=== PATIENT | female | born 1975 | race Caucasian/White ===

== ENCOUNTER → 2018-09-12 21:56 | Outpatient (CLI) | payer BC | END | disposition home or self-care (01) | LOC: D.MAMMO 13:30 | DX: Z12.31 Encounter for screening mammogram for malignant neoplasm of breast (principal) ==

== ENCOUNTER 2020-06-23 06:25 | Day surgery (SDC) | payer BC ==
[2020-06-20 11:39] LABS: BASOPHILS 0.3 % (0-2); EOSINOPHILS 3.2 % (0-7); HEMATOCRIT 46.8 % (36.0-48.0); HEMOGLOBIN 15.7 g/dL (12-16); IMMATURE GRANULOCYTES 0.2 % (0-5); LYMPHOCYTES 33.9 % (15-50); MCH 32.3 pg (26.0-34.0); MCHC 33.5 g/dL (31.0-37.0); MCV 96.3 fL (80.0-100.0); MEAN PLATELET VOLUME 10.1 fL (7.4-10.4); MONOCYTES 8.6 % (2-11); NEUTROPHILS 53.8 % (40-80); PLATELET COUNT 266 10x3/uL (130-400); RBC 4.86 10x6/uL (4.00-5.40); RDW 12.7 % (11.5-14.5)
[~2020-06-23] VITALS: Ht 160 cm; Wt 95.3 kg
--- NOTE | ~2020-06-23 | OP ---
PATIENT NAME: ROX RG MEDICAL RECORD: [id number] LOCATION:[facility] ADMISSION DATE: SURGEON: AUNG LUNDBERG MD DATE OF OPERATION: 06/23/2020 PREOPERATIVE DIAGNOSIS: Undesired fertility. POSTOPERATIVE DIAGNOSIS: Undesired fertility. PROCEDURES: 1. Diagnostic laparoscopy. 2. Bilateral salpingectomy. SURGEON: Aung Lundberg MD MEASURING MACHINE OPERATOR: Ruben Webster. ANESTHESIOLOGIST: Dr. Cason. ANESTHETIC: General. FINDINGS: Uterus, tubes, and ovaries unremarkable. What was visualized of the abdominal anatomy was unremarkable. SPECIMENS REMOVED: Bilateral tubes. SPECIMEN DISPOSITION: All specimens to pathology. ESTIMATED BLOOD LOSS: Minimal. FLUIDS: 500 cc lactated Ringer's. URINE OUTPUT: Quantity sufficient void prior to this procedure. COMPLICATIONS: None. DRAINS: None. INDICATIONS: The patient is a 45-year-old female with undesired fertility. The patient has been counseled and desires salpingectomy for sterilization and decreased ovarian cancer risks. DESCRIPTION OF PROCEDURE: After informed consent was assured, the patient was taken to the operating room where anesthetic was obtained without difficulty. The patient is now prepped and draped in the usual sterile fashion. An incision was made in the umbilicus to accommodate a 5-mm trocar, which was inserted without difficulty. The pneumoperitoneum has now developed. Accessory ports are now placed in the midline and right lower quadrant. Through the midline port, a grasper was inserted and the right tube elevated. Using a Thunderbeat coagulation cutter coming in from the right port, the mesosalpinx compressed, coagulated, and . This dissection was continued across the mesosalpinx to the cornual region until the tube was compressed, coagulated, and from the cornual region. The tube was now removed from the pelvis and passed to the attendant. The attention was now directed to the left tube. The left tube was elevated at the fimbria and again using the Thunderbeat coagulation cutter, OPERATIVE REPORT [id number] ROX RG the mesosalpinx compressed, coagulated, and . The dissection was carried out underneath this tube and across the cornual region. The tube was now removed from the pelvis. Inspection of the operative field revealed it to be hemostatic. Marcaine was placed directly over both right and left dissection areas. Pneumoperitoneum was released as the accessory trocars were removed. The primary trocar was now removed and all sites closed with a subcuticular stitch. Dermabond was applied. Sponge, lap, needle counts were correct times 2. The patient was awakened and went to the recovery area in stable condition. TRANSINT:[id number] Voice Confirmation ID: [id number] DOCUMENT ID: [id number] AUNG LUNDBERG MD CC: [id number] DICTATION DATE: 06/23/20 0849 ANALYSIS INTERNSHIP: 06/23/20 1254 [facility] [place] 06/23/20 [facility] [address] [place] [address]
[~2020-06-23 06:25] MED LIST: LEXAPRO10 MG PO; NORVASC10 MG PO; PRAVASTATIN PO; XOLAIR IM
[2020-06-23 07:26] VITALS: BP 115/72; Ht 160 cm; Wt 95.3 kg
[2020-06-23 07:34] LABS: HCG URINE NEGATIVE (NEGATIVE)
[2020-06-23 07:41] LABS: UDS - AMPHET NEGATIVE QUAL (NEGATIVE); UDS - BARB NEGATIVE QUAL (NEGATIVE); UDS - BENZO NEGATIVE QUAL (NEGATIVE); UDS - COCAINE NEGATIVE QUAL (NEGATIVE); UDS - OPIATE NEGATIVE QUAL (NEGATIVE); UDS - PCP NEGATIVE QUAL (NEGATIVE); UDS - THC NEGATIVE QUAL (NEGATIVE)
--- NOTE | 2020-06-23 09:07 | NUR ---
PATIENT DENIES PAIN. STATES SHE IS COMFORTABLE DURING THIS TIME. ALERT AND AWAKE.
== END 2020-06-23 10:32 | disposition home or self-care (01) ==
LOC: D.OPS 06:25 → D.PAN 07:00 → D.OPS 08:30
PROVIDERS: ATTEND Obstetrics & Gynecology
DX: Z30.2 Encounter for sterilization (principal); J45.909 Unspecified asthma, uncomplicated; Z72.0 Tobacco use; N39.0 Urinary tract infection, site not specified